=== PATIENT | male | born 1980 ===

== ENCOUNTER 2017-06-18 11:41 | Emergency (ER) | payer OTHER ==
[2017-06-18 11:50] VITALS: TEMP 97.5
[2017-06-18] MEDS ORDERED: Sodium Chloride 0.9% 1,000 ML IV ONE (12:48)
--- NOTE | 2017-06-18 12:52 | C.PDOC ---
History Of Present Illness 36 year old male presents to the ED for evaluation of rectal pain which began 2 weeks ago. Patient reports experiencing pain with bowel movements, slight bleeding and feels like "there is a ball there." Patient was evaluated by his PMD, Dr. Carlos White, who prescribed him a cream to apply to the area. Patient did not find improvement and returned to his PMD on 06/12. Patient was then prescribed Ciproflaxin and Flagyl, which he has been taking without significant improvement. Patient reports increased pain to the area and dark red blood in stools when moving his bowels. Patient denies fever, chills, abdominal pain, nausea, vomiting. Time Seen by Provider: 06/18/17 12:28 Chief Complaint (Nursing): Medical Clearance History Per: Patient History/Exam Limitations: no limitations Onset/Duration Of Symptoms: Other (2 weeks ) Current Symptoms Are (Timing): Still Present Additional History Per: Patient Past Medical History Reviewed: Historical Data, Nursing Documentation, Vital Signs Vital Signs: Last Vital Signs Temp 97.5 F L 06/18/17 11:47 Pulse 70 06/18/17 15:54 Resp 16 06/18/17 15:54 BP 118/75 06/18/17 15:54 Pulse Ox 99 06/18/17 17:36 - Medical History PMH: No Chronic Diseases Surgical History: No Surg Hx Family History: States: Unknown Family Hx - Social History Hx Alcohol Use: No Hx Substance Use: No - Immunization History Hx Tetanus Toxoid Vaccination: No Hx Influenza Vaccination: No Hx Pneumococcal Vaccination: No Review Of Systems Constitutional: Negative for: Fever, Chills Gastrointestinal: Positive for: Rectal Pain. Negative for: Nausea, Vomiting, Abdominal Pain Physical Exam - Physical Exam Appears: Non-toxic, No Acute Distress Skin: Normal Color, Warm, Dry Head: Atraumatic, Normacephalic Eye(s): bilateral: Normal Inspection Oral Mucosa: Moist Neck: Supple Chest: Symmetrical, No Deformity, No Tenderness, Other (bradycardia ) Cardiovascular: Rhythm Regular, No Murmur Respiratory: Normal Breath Sounds, No Rales, No Rhonchi, No Wheezing Gastrointestinal/Abdominal: Soft, No Tenderness, No Guarding, No Rebound Rectal: Rectal Tone (normal ), No Blood Streaked Stool, Hemorrhoids (non- thrombosed ), Tenderness, No Other (erythema or swelling to perirectal area ) Extremity: Normal ROM, Capillary Refill (less than 2 seconds ) Neurological/Psych: Oriented x3, Normal Speech, Normal Cognition Gait: Steady ED Course And Treatment - Laboratory Results Result Diagrams: 06/18/17 13:08 06/18/17 13:08 Lab Interpretation: No Acute Changes O2 Sat by Pulse Oximetry: 99 (on RA) Pulse Ox Interpretation: Normal - CT Scan/US CT A/P Other Rad Studies (CT/US): Interpreted By Me, Read By Radiologist, Radiology Report Reviewed CT/US Interpretation: PROCEDURE: CT Abdomen and Pelvis with contrast. HISTORY : rectal pain and bleeding. COMPARISON: None. TECHNIQUE: Contrast dose: 100 mL Visipaque 320. Axial and reformatted coronal and sagittal CT images of the abdomen and pelvis were obtained after IV contrast administration. No oral contrast was given. Radiation dose: Total exam DLP = 473.61 mGy-cm. This CT exam was performed using one or more of the following dose reduction techniques : Automated exposure control, adjustment of the mA and/or kV according to patient size, and/or use of iterative reconstruction technique. FINDINGS: LOWER THORAX: Unremarkable. LIVER: Mild diffuse low-attenuation of the liver is noted likely represent mild steatosis. No evidence of mass lesion in the liver. GALLBLADDER AND BILE DUCTS: Unremarkable. PANCREAS: Unremarkable. No gross lesion or ductal dilatation. SPLEEN: Unremarkable. ADRENALS: Unremarkable. No mass. KIDNEYS AND URETERS: Unremarkable. No hydronephrosis. No solid mass. VASCULATURE: Unremarkable. No aortic aneurysm. BOWEL: Unremarkable. No obstruction. No gross mural thickening. Mild constipation is noted. No CT evidence of colitis. APPENDIX: Normal appendix. PERITONEUM: Unremarkable. No free fluid. No free air. LYMPH NODES: Unremarkable. No enlarged lymph nodes. BLADDER: Unremarkable. REPRODUCTIVE: Unremarkable. BONES: No acute fracture. OTHER FINDINGS: None. IMPRESSION: No evidence of acute pathology in the abdomen and pelvis. Mild constipation. Progress Note: Bloodwork, urinalysis, CT A/P ordered and reviewed. Protonix IVP and IV Fluids administered. Medical Decision Making Medical Decision Making: Impression: rectal pain Plan: * Labs * Stool occult * IV NS * CT A/P Progress: Labs reviewed; neg stool occult. normal Hgb, normal electrolytes CT abdomen reviewed with no acute pathology Re-Eval: 1538 patient reevaluated and remains well in no distress. He has no fever and vital signs stable. Discussed results with patient, and copy of lab and CT report was provided. I advised increase in water and fiber intake to help with constipation. Rx given. Patient feels comfortable going home and will be discharged. Patient given follow up instructions. Instructed to return to ER if symptoms worsen or new symptoms arise. Disposition Counseled Patient/Family Regarding: Diagnosis, Need For Followup, Rx Given - Disposition Disposition: HOME/ ROUTINE Disposition Time: 15:39 Condition: STABLE Additional Instructions: Tus laboratorios fueron normales. La TC del abdomen muestra estreimiento y no hay afeccin quirrgica. Tyesha ms agua y coma ms fibra para ayudar con el estre imiento. Termine los antibiticos. Samantha un seguimiento con cedeno mdico primario o clnica en 2-5 cohn para camryn evaluacin adicional. Regrese al departamento de emergencia en cualquier momento si los sntomas persisten o empeoran. Your labs were normal. CT of abdomen shows constipation and no surgical condition. Drink more water and eat more fiber to help with constipation. Finish antibiotics. Follow up with your primary medical doctor or clinic in 2-5 days for further evaluation. Return to the emergency department at any time if symptoms persist or worsen. Prescriptions: Docusate [Colace] 100 mg PO TID PRN #30 cap PRN Reason: Constipation Instructions: Constipation in Adults, Hemorrhoids (DC) Forms: [employer] (Portuguese) Print Language: OMANI - POA Present On Arrival: None - Clinical Impression Clinical Impression: Hemorrhoids, Constipation - PA / [employer] / Resident Statement MD/DO has reviewed & agrees with the documentation as recorded. - Scribe Statement The provider has reviewed the documentation as recorded by the Scribe (Cathie George) All medical record entries made by the Scribe were at my direction and personally dictated by me. I have reviewed the chart and agree that the record accurately reflects my personal performance of the history, physical exam, medical decision making, and the department course for this patient. I have also personally directed, reviewed, and agree with the discharge instructions and disposition.
[2017-06-18 13:33] LABS: ALB/GLOB RATIO 1.4 (1.0-2.1); ALBUMIN 4.4 g/dL (3.5-5.0); ALT/SGPT 34 U/L (21-72); AST/SGOT 24 U/L (17-59); BLOOD UREA NITROGEN 12 mg/dL (9-20); CALCIUM 9.4 mg/dl (8.6-10.4); GFR AFRICAN-AMERICAN > 60; GFR NON-AFRICAN AMERICAN > 60; LIPASE 34 U/L (23-300)
[2017-06-18 13:34] LABS: URINE BACTERIA RARE (<OCC); URINE BILIRUBIN NEGATIVE (NEGATIVE); URINE BLOOD NEGATIVE (NEGATIVE); URINE CLARITY Clear (Clear); URINE COLOR Yellow (YELLOW); URINE GLUCOSE (UA) NORMAL (Normal); URINE LEUKOCYTE ESTERASE NEG Leu/uL (Negative); URINE NITRATE NEGATIVE (NEGATIVE); URINE PROTEIN NEGATIVE (NEGATIVE); URINE UROBILINOGEN NORMAL mg/dL (0.2-1.0)
[2017-06-18 14:01] LABS: MEAN PLATELET VOLUME 9.7 fL (7.2-11.7)
[2017-06-18 14:02] LABS: INR 1.1
[2017-06-18 14:05] LABS: BASO % 0.5 % (0.0-2.0); EOS # 0.1 K/uL (0.0-0.7); HEMOGLOBIN 16.2 g/dL (12.0-18.0); LYMPH # 1.7 K/uL (1.0-4.3); LYMPH % 45.1 % (20.0-40.0); MEAN CELL VOLUME 88.9 fL (80.0-94.0); MEAN CORPUSCULAR HEMOGLOBIN 30.5 pg (27.0-31.0); MEAN CORPUSCULAR HGB CONC 34.3 g/dL (33.0-37.0); MONO # 0.3 K/uL (0.0-0.8); MONO % 7.2 % (0.0-10.0); NEUT # 1.7 K/uL (1.8-7.0); NEUT % 45.2 % (50.0-75.0); NRBC % 0.3 % (0.0-2.0); RBC 5.3 Mil/uL (4.40-5.90); RED CELL DISTRIBUTION WIDTH 13.5 % (11.5-14.5); WHITE BLOOD COUNT 3.8 K/uL (4.8-10.8)
[2017-06-18] MEDS ORDERED: Iodixanol 320 MG/ML 100 ML BOTTLE IV ONE (14:40)
--- NOTE | 2017-06-18 15:28 | CT ---
PROCEDURE: CT Abdomen and Pelvis with contrast HISTORY: rectal pain and bleeding COMPARISON: None. TECHNIQUE: Contrast dose: 100 mL Visipaque 320. Axial and reformatted coronal and sagittal CT images of the abdomen and pelvis were obtained after IV contrast administration. No oral contrast was given. Radiation dose: Total exam DLP = 473.61 mGy-cm. This CT exam was performed using one or more of the following dose reduction techniques: Automated exposure control, adjustment of the mA and/or kV according to patient size, and/or use of iterative reconstruction technique. FINDINGS: LOWER THORAX: Unremarkable. LIVER: Mild diffuse low-attenuation of the liver is noted likely represent mild steatosis. No evidence of mass lesion in the liver. GALLBLADDER AND BILE DUCTS: Unremarkable. PANCREAS: Unremarkable. No gross lesion or ductal dilatation. SPLEEN: Unremarkable. ADRENALS: Unremarkable. No mass. KIDNEYS AND URETERS: Unremarkable. No hydronephrosis. No solid mass. VASCULATURE: Unremarkable. No aortic aneurysm. BOWEL: Unremarkable. No obstruction. No gross mural thickening. Mild constipation is noted. No CT evidence of colitis. APPENDIX: Normal appendix. PERITONEUM: Unremarkable. No free fluid. No free air. LYMPH NODES: Unremarkable. No enlarged lymph nodes. BLADDER: Unremarkable. REPRODUCTIVE: Unremarkable. BONES: No acute fracture. OTHER FINDINGS: None. IMPRESSION: No evidence of acute pathology in the abdomen and pelvis. Mild constipation.
[2017-06-18 15:55] VITALS: BP 118/75; PULSE 70; RESP 16
[2017-06-18 17:36] VITALS: O2SAT 99
== END 2017-06-18 15:54 | disposition home or self-care (01) ==
LOC: C.ER 11:41
DX: K64.9 Unspecified hemorrhoids (principal); K59.00 Constipation, unspecified
CPT/HCPCS: 74177; 80053; 81001; 83690; 85025; 85610; 85730; 96361; 96374; 99283; C9113; G0328; J7040; Q9967